=== PATIENT | male | born 1985 | race Caucasian/White ===

== ENCOUNTER 2023-12-24 13:32 | Emergency (ER) | payer SELFPAY | END 2023-12-24 13:49 | disposition left against medical advice (07) | LOC: JP.ED 13:32 | DX: Z53.21 Procedure and treatment not carried out due to patient leaving prior to being seen by health care provider (principal) ==

== ENCOUNTER 2023-12-24 15:47 | Emergency (ER) | payer SELFPAY | END 2023-12-24 16:50 | disposition left against medical advice (07) | LOC: JP.ED 15:47 | DX: Z53.21 Procedure and treatment not carried out due to patient leaving prior to being seen by health care provider (principal) ==